=== PATIENT | female | born 1955 | race Asian ===

== ENCOUNTER 2019-12-30 04:45 | Day surgery (SDC) | payer OTHER ==
[2019-12-29 12:07] VITALS: BMI 26.4
[~2019-12-30 04:45] MED LIST: metroNIDAZOLE 0.75% VAGINAL GEL 70 GM TUBE VG ONE
[2019-12-30] MEDS ORDERED: MIDAZOLAM HCL 2 MG/2 ML SINGLE DOSE VIAL ONE (08:20)
[2019-12-30] MEDS ORDERED: fentaNYL CITRATE 250 MCG/5 ML VIAL ONE (08:20)
[2019-12-30] MEDS ORDERED: metroNIDAZOLE 0.75% VAGINAL GEL 70 GM TUBE ONE (08:50)
[2019-12-30] MEDS ORDERED: VASOPRESSIN 20 UNITS/ML VIAL IV ONE (08:50)
--- NOTE | 2019-12-30 08:58 | HP ---
History & Physical Update - History History: No Change - Physical Physical: No Change - Assessment Assessment: No Change - Plan Plan: No Change (H&P reviwed , no cahnages , for vaginal hysterectomy, cystorectocele repair)
[2019-12-30] MEDS ORDERED: ceFAZolin SODIUM 1 GM VIAL IVPB ONE (10:00)
[2019-12-30] MEDS ORDERED: PATIENT'S OWN MEDICATION (NON-FORMULARY) (Glyburide/Metformin Hcl [Glucovance 5-500 Mg Tab PO SCH (10:00)
[2019-12-30] MEDS ORDERED: ROCURONIUM BROMIDE 50 MG/5 ML SYRINGE ONE (11:05)
[2019-12-30] MEDS ORDERED: EPHEDRINE SULFATE/0.9% NACL/PF 50 MG/10 ML SYRINGE NR ONE (11:06)
[2019-12-30] MEDS ORDERED: NEOSTIGMINE METHYLSULFATE 0.5 MG/ML - 10 ML MDV ONE (11:33)
[2019-12-30] MEDS ORDERED: ONDANSETRON 4 MG/2 ML VIAL IVPUSH PRN (11:45)
[2019-12-30] MEDS ORDERED: IBUPROFEN 800 MG/8 ML IJ IVPB PRN (11:45)
[2019-12-30] MEDS ORDERED: oxyCODONE HCL 5 MG TABLET PO PRN (11:45)
[2019-12-30] MEDS ORDERED: ELECTROLYTE-148 SOLN 1,000 ML IV SCH (11:45)
[2019-12-30] MEDS ORDERED: IBUPROFEN 600 MG TABLET (FP) PO PRN (11:45)
[2019-12-30] MEDS ORDERED: GLYCOPYRROLATE 0.2 MG/1 ML VIAL ONE (11:50)
[2019-12-30] MEDS ORDERED: METOPROLOL TARTRATE 5 MG/5 ML VIAL ONE (11:51)
--- NOTE | 2019-12-30 11:56 | OP ---
Operative Note - Note: Operative Date: 12/30/19 Pre-Operative Diagnosis: uterovaginal prolapse, cystorectocele Operation: vaginal hysterectomy, AP repair , pernioplasty Findings: uterovaginal prolapse Surgeon: Ernesto Ann Loom Cleaner: Mel Oquendo Anesthesiologist/CHROMIUM PLATER: Dave Roy Anesthesia: General Specimens Removed: uterus , cervix, portion of RT tube Estimated Blood Loss (mls): 150 Drains & Tubes with Location: nicole Drains, Volume Out (mls): 550 Blood Volume Replaced (mls): 0 Fluid Volume Replaced (mls): 1,100 Operative Report Dictated: Yes
[2019-12-30] MEDS ORDERED: HYDROmorphone HCl 2 MG/ML VIAL ONE (13:00)
[2019-12-30] MEDS ORDERED: ACETAMINOPHEN 325 MG TABLET (FP) PO PRN (13:26)
[2019-12-30] MEDS ORDERED: HYDROmorphone HCl 2 MG/ML VIAL IVPUSH ONE (13:54)
[2019-12-30] MEDS ORDERED: HYDROmorphone HCL CARPU-JECT 2 MG/1 ML DISP.SYRIN IVPUSH ONE (13:54)
[2019-12-30] MEDS: LISINOPRIL 20 MG TABLET (FP) PO SCH (14:57)
[2019-12-30] MEDS ORDERED: CEFAZOLIN 1 GM in DEXTROSE 5%-WATER - 50 ML IVPB SCH (18:00)
[2019-12-30] MEDS ORDERED: CEFAZOLIN 1 GM/D5W 1 GM/50 ML BAG IVPB SCH (18:00)
[2019-12-30] MEDS ORDERED: metFORMIN HCL 500 MG TABLET (FP) PO ONE (19:00)
[2019-12-30] MEDS ORDERED: ATORVASTATIN CA 20 MG TABLET (FP) PO SCH (22:00)
[2019-12-30] MEDS: LACTATED RINGERS SOLUTION 1,000 ML IV SCH ×2 (23:55→23:56)
[2019-12-31] MEDS ORDERED: ceFAZolin SODIUM 1 GM VIAL ONE ×2 (00:58→09:15)
[2019-12-31] MEDS ORDERED: DEXTROSE 5%-WATER - 50 ML IVPB ONE ×2 (00:59→09:15)
[2019-12-31] MEDS: CEFAZOLIN 1 GM in DEXTROSE 5%-WATER - 50 ML IVPB SCH ×2 (01:26→09:52)
[2019-12-31] MEDS: INSULIN SLIDING SCALE (NOVOLOG) 1 VIAL SQ SCH ×2 (06:04→12:05)
[2019-12-31] MEDS ORDERED: metFORMIN HCL 500 MG TABLET (FP) PO SCH (07:00)
[2019-12-31] MEDS ORDERED: glyBURIDE 5 MG TABLET PO SCH (07:00)
[2019-12-31 07:46] LABS: HEMATOCRIT 31.9 % (32.4-45.2); HEMOGLOBIN 10.8 GM/dL (10.7-15.3); MCH 28.6 pg (25.7-33.7); MCHC 33.8 g/dl (32.0-36.0); MEAN CELL VOLUME 84.5 fl (80-96); MEAN PLT VOLUME 7.4 fl (7.5-11.1); PLATELET COUNT 307 K/MM3 (134-434); RBC 3.77 M/mm3 (3.60-5.2); RDW 13.5 % (11.6-15.6); WHITE BLOOD COUNT 12.2 K/mm3 (4.0-10.0)
[2019-12-31 08:22] LABS: BLOOD UREA NITROGEN 9.4 mg/dL (7-18); CALCIUM 8.2 mg/dL (8.5-10.1); CREATININE 0.5 mg/dL (0.55-1.3); POTASSIUM 3.8 mmol/L (3.5-5.1)
[2019-12-31] MEDS: LISINOPRIL 20 MG TABLET (FP) PO SCH (09:52)
[2019-12-31] MEDS ORDERED: ENOXAPARIN NA (PORCINE) 40 MG/0.4 ML DISP.SYRIN SQ SCH (10:00)
[2019-12-31 10:28] VITALS: BP 135/65; PULSE 90; TEMP 98.2
--- NOTE | 2019-12-31 10:48 | PN ---
Progress Note (short form) - Note Progress Note: pod1 . doing well, ambulating, no vaginal bleeding CBC, BMP 12/31/19 07:03 12/31/19 07:03 Last Vital Signs Temp Pulse Resp BP Pulse Ox 98.2 F 90 17 135/65 99 12/31/19 09:50 12/31/19 09:50 12/31/19 09:50 12/31/19 09:50 12/30/19 22:50 abdomen soft, no distension, no cva vagina packing removed, no active bleeding or discharge no calf tenderness no edema plan remove nicole, if able to void d/c home with instruction . follow up office 2 weeks cont. dunia as her PCP
[2019-12-31] MEDS ORDERED: INSULIN (NOVOLOG) ASPART 100 UNITS/ML 10ML VIAL ONE (11:36)
--- NOTE | 2019-12-31 18:46 | OP ---
DATE OF OPERATION: 12/30/2019 PREOPERATIVE DIAGNOSIS: Uterovaginal prolapse, cystorectocele. POSTOPERATIVE DIAGNOSIS: Uterovaginal prolapse, cystorectocele. PROCEDURE: Transvaginal hysterectomy and cystocele and rectocele repair, and perineoplasty. SURGEON: Ernesto Ann MD. FIRE LOSS PREVENTION ENGINEER: Mel Oquendo MD. ANESTHESIA: General. ANESTHESIOLOGIST: Dave Roy MD. ESTIMATED BLOOD LOSS: 150 mL. DESCRIPTION OF PROCEDURE: Patient was taken to operating room, where under adequate general anesthesia in dorsal lithotomy position. Abdomen, perineum, vagina were prepped and draped. An examination under anesthesia showed external genitalia slight gaping of the introitus. Cervix was at the vaginal introitus. There was a large cystocele and rectocele. Uterus was normal size, anteverted. Adnexa no masses were palpable. Then, with the weighted speculum in the vagina, anterior and posterior lip of the cervix was grasped with 2 single-tooth tenaculum and dilute vasopressin solution was injected into the vaginal mucosa anteriorly and posteriorly. Then with a cautery, a vaginal mucosa was cut circumferentially around the cervix. Then posterior vaginal mucosa was dissected with Metzenbaum scissors until the posterior peritoneum was reached. At this time, posterior peritoneum was grasped with an Allis clamp and entered with Metzenbaum scissors, and the weighted speculum was advanced into the cul-de-sac area. Then bladder was dissected from the cervix with Metzenbaum blunt and sharp dissection, and bladder was pushed up. Then uterosacral ligaments were identified bilaterally, clamped with Arsenio clamps, clamped and cut, and the clamps replaced with 0 Vicryl suture bilaterally. At this time the bladder was further pushed up, and then uterine artery was identified bilaterally, clamped with Arsenio clamps and cut, and the clamp replaced with 0 Vicryl suture bilaterally. At this time, the parametrium was clamped with Arsenio clamps and cut, and the clamps replaced with 0 Vicryl suture bilaterally. Then after pedicle including tube and uteroovarian pedicle were reached, and then grasped with Arsenio clamp and cut bilaterally, and the specimen was removed, the uterus and cervix. And then the pedicles were first tied with 2-0 Vicryl ties and then with the 2-0 Vicryl ligature suture bilaterally. At this time, the ovaries were high up, and they were not seen. The right tube was seen which was grasped with the Parma clamp, and Marilyn clamp was applied at the base of the tube, and the tube was removed, and the Marilyn clamp was replaced with the 0 Vicryl ties. Then no bleeding was seen. Pedicles were dry. Then peritoneum was closed with 0 Vicryl pursestring suture, and then anterior vaginal mucosa was infiltrated with vasopressin solution, and cystocele repair was started by making a vertical incision into the anterior vaginal mucosa and undermined with Metzenbaum scissors, and then the bladder was from the mucosa by sharp dissection with Metzenbaum scissors and blunt dissection. Bladder was , and then with the pursestring suture the cystocele was reduced and then was reinforced with 3-0 Vicryl mattress suture interrupted. Excess vaginal mucosa was cut, and then vaginal mucosa was brought together with continuous suture of 2-0 Vicryl. No active bleeding was seen. Then the uterosacral ligament was fixed to the vaginal angle, and then posterior repair started by cutting the excess perineal skin, and then the posterior vaginal mucosa was infiltrated with the vasopressin solution and with Metzenbaum and blunt dissection, the rectum was from the posterior vaginal mucosa, then excess vaginal mucosa was cut posteriorly, and then the rectocele was repaired with interrupted suture of mattress 2-0 Vicryl and 3-0 Vicryl. Then rectal exam showed clear, no suture in the rectum, and then vaginal mucosa was brought together interrupted suture of 2-0 Vicryl, and then the perineoplasty was done in episiotomy-like fashion, the muscles were brought together by interrupted suture of the 0 Vicryl, and then the mucosa and the skin were closed with interrupted suture of 3-0 Vicryl, and then Li was inserted, clear urine. No active bleeding was seen. Then vagina was packed with gauze with MetroGel cream, and rectal exam was negative, and patient tolerated procedure well, left the OR in good condition. Praveen [id number]
--- NOTE | 2020-01-01 15:25 | PATH ---
Surgical Pathology Report Patient Name: JOSIAS CHAVEZ [facility]. Rec. #: [id number] /Age/Gender: 1955 (Age: 64) / F Account: [id number] Location: AMBULATORY SURG Taken: 12/30/2019 Received: 12/30/2019 Reported: 01/01/2020 Physicians: Ernesto Ann M.D. Specimen(s) Received A: UTERUS AND CERVIX B: PORTION OF FALLOPIAN TUBE, RIGHT C: VAGINAL MUCOSA Clinical History Pelvic pain Final Diagnosis A. UTERUS AND CERVIX, TOTAL VAGINAL HYSTERECTOMY, CYSTOCELE AND RECTOCELE REPAIR: 47 G UTERUS. ENDOMETRIUM WITH CYSTIC ATROPHY. UNREMARKABLE MYOMETRIUM. 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 B. PORTION OF FALLOPIAN TUBE, RIGHT, EXCISION: FIMBRIATED PORTION OF UNREMARKABLE FALLOPIAN TUBE. C. VAGINAL MUCOSA, EXCISION: BENIGN SQUAMOUS MUCOSA WITH FOCAL MILD CHRONIC INFLAMMATION. Electronically Signed Mae Helm M.D. Gross Description A. Received in formalin labeled "uterus and cervix," is a 47 g uterus with an attached cervix and no attached adnexa. The specimen measures 7.0 cm from superior to inferior, 3.6 cm from left to right and 2.3 cm from anterior to posterior. The serosa is leslie and smooth. The attached cervix measures 2.5 cm in length and averages 2.5 cm in diameter. The ectocervix is leslie, smooth and glistening. The endocervix is unremarkable. The endometrial cavity measures 3 cm in length and averages 1.4 cm from cornu to cornu. The endometrium is leslie-red and averages 0.1 cm in thickness. The myometrium is leslie and unremarkable. No intramural nodules are identified. The myometrium averages 1.2 cm in thickness. Parts Finisher sections are submitted in 6 cassettes as follows: 1-anterior cervix; 2-posterior cervix; 7-2-widcrtoy endomyometrium; 8-2-[id number] endomyometrium. B. Received in formalin labeled "portion of right fallopian tube," is a 1.4 x 1.0 x 0.2 cm leslie-hinton portion of fimbria. No fallopian tube lumen is identified. The specimen is submitted in toto in one cassette. C. Received in formalin labeled "vaginal mucosa," are 3 leslie, unoriented portions of mucosal tissue ranging from 1.4 x 0.5 x 0.4 cm to 3.0 x 2.2 x 0.3 cm. Parts Finisher sections are submitted in one cassette. 12/31/2019 [facility]12/31/2019
== END 2019-12-31 15:30 | disposition home or self-care (01) ==
LOC: JASUSAT 04:45 → EDSTATUS 10:00 → J3W 14:48 → J8W 20:57 → JASUSAT 12-31 15:30
PROVIDERS: ATTEND Obstetrics & Gynecology
PROC: 0JQC0ZZ Repair Pelvic Region Subcutaneous Tissue and Fascia, Open Approach (ICD-10-PCS; 2019-12-30)
PROC: 0WQN0ZZ Repair Female Perineum, Open Approach (ICD-10-PCS; 2019-12-30)
PROC: 0UT97ZZ Resection of Uterus, Via Natural or Artificial Opening (ICD-10-PCS; principal; 2019-12-30 09:30)
PROC: 0JQC0ZZ Repair Pelvic Region Subcutaneous Tissue and Fascia, Open Approach (ICD-10-PCS; 2019-12-30 09:30)
DX: N81.2 Incomplete uterovaginal prolapse (principal); R10.2 Pelvic and perineal pain
CPT/HCPCS: 36415; 80048; 82962; 85027; 86850; 86900; 86901; 94760